=== PATIENT | male | born 1980 | race Caucasian/White ===

== ENCOUNTER 2019-03-21 04:45 | Emergency (ER) | payer SELFPAY ==
[2019-03-21 05:08] VITALS: RESP 20
[2019-03-21] MEDS ORDERED: Amoxicillin-Clav 875-125 mg Tab PO STA (05:17)
[2019-03-21] MEDS ORDERED: Oxycodone/Acetaminophen 5/325 mg Tab PO STA (05:17)
--- NOTE | 2019-03-21 05:28 | C.PDOC ---
History Of Present Illness 38 year old male presents to the ED c/o left sided dental pain for the past 3 days. Patient states pain worsened this morning after waking up. Patient tried taking some pain medications (does not remember name) with no relief. Patient has not followed up with Dentist yet. Patient denies fever, chills, nausea, vomit, headache, neck pain, injury, fall, trauma. Time Seen by Provider: 03/21/19 04:58 Chief Complaint (Nursing): Dental Pain History Per: Patient History/Exam Limitations: no limitations Onset/Duration Of Symptoms: Days (3) Current Symptoms Are (Timing): Worse Severity: Moderate Quality: Positive for: "Pain" Recent travel outside of the [place]: No Additional History Per: Patient Past Medical History Reviewed: Historical Data, Nursing Documentation, Vital Signs Vital Signs: Last Vital Signs Temp 98.0 F 03/21/19 04:51 Pulse 83 03/21/19 04:51 Resp 20 03/21/19 04:51 BP 182/100 H 03/21/19 04:51 Pulse Ox 99 03/21/19 04:51 - Medical History PMH: No Chronic Diseases Surgical History: No Surg Hx Family History: States: Unknown Family Hx - Social History Hx Alcohol Use: Yes Hx Substance Use: No - Immunization History Hx Tetanus Toxoid Vaccination: No Hx Influenza Vaccination: No Hx Pneumococcal Vaccination: No Review Of Systems Constitutional: Negative for: Fever, Chills Eyes: Negative for: Vision Change ENT: Positive for: Mouth Pain, Mouth Swelling Respiratory: Negative for: Cough, Shortness of Breath Gastrointestinal: Negative for: Nausea, Vomiting, Abdominal Pain Musculoskeletal: Negative for: Neck Pain Skin: Negative for: Rash Neurological: Negative for: Headache Physical Exam - Physical Exam Appears: Non-toxic, No Acute Distress Skin: Normal Color, Warm, Dry, No Rash Head: Atraumatic, Normacephalic Eye(s): bilateral: Normal Inspection, PERRL, EOMI Ear(s): Bilateral: Normal Oral Mucosa: Moist Tongue: No Swelling Lips: No Swelling Teeth: Tender To Palpation, Other (left lower molar cracked) Gingiva: Swelling (left lower molar), No Bleeding, No Abscess Throat: Normal, No Erythema, No Exudate Neck: Normal ROM, No Midline Cervical Tenderness, Supple Chest: Symmetrical Respiratory: No Accessory Muscle Use Extremity: Normal ROM, No Swelling Neurological/Psych: Oriented x3, Normal Speech, Normal Cognition Gait: Steady ED Course And Treatment O2 Sat by Pulse Oximetry: 99 (ON RA) Pulse Ox Interpretation: Normal Medical Decision Making Medical Decision Making: Plan: * Augmentin 1 tab PO * Motrin 800 mg PO * Percocet 1 tab PO Patient advised to follow up with Dentist. Disposition - Disposition Referrals: [facility]. [facility] [Outside] Demetrio Patten DMD [Staff Provider] - Disposition: HOME/ ROUTINE Disposition Time: 05:45 Condition: STABLE Additional Instructions: Follow up with the medical doctor within 1-2 days. Return if worsened. Prescriptions: Acetaminophen/Oxycodone Hydr [Percocet 10/325 mg Tab] 1 tab PO Q6H #15 tab Amoxicillin [Amoxil 500 mg Cap] 500 mg PO TID #29 cap Ibuprofen [Motrin] 600 mg PO TID #21 tab Instructions: Tooth Decay, Adult (DC) Forms: [facility] (Yoruba) - Clinical Impression Clinical Impression: Dental caries - PA / TAXI DANCER / Resident Statement MD/DO has reviewed & agrees with the documentation as recorded. - Scribe Statement The provider has reviewed the documentation as recorded by the Scribe Jaime Howe All medical record entries made by the Scribe were at my direction and perso hadley dictated by me. I have reviewed the chart and agree that the record accurately reflects my personal performance of the history, physical exam, medical decision making, and the department course for this patient. I have also personally directed, reviewed, and agree with the discharge instructions and disposition.
[2019-03-21] MEDS ORDERED: Amoxicillin-Clav 875-125 mg Tab PO ONE (05:29)
[2019-03-21] MEDS ORDERED: Oxycodone/Acetaminophen 5/325 mg Tab ONE (05:29)
[2019-03-21 05:55] VITALS: TEMP 98.2
[2019-03-21 05:58] VITALS: BP 135/70; PULSE 75
[2019-03-22 03:33] VITALS: O2SAT 99
== END 2019-03-21 05:57 | disposition home or self-care (01) ==
LOC: C.ER 04:45
DX: K02.9 Dental caries, unspecified (principal)